=== PATIENT | male | born 1995 | race Caucasian/White ===

== ENCOUNTER 2020-10-09 06:00 | Outpatient (RCR) | payer OTHER ==
[~2020-10-09] VITALS: Ht 175.3 cm; Wt 72.7 kg
[2020-10-11] MEDS ORDERED: ACHD5005 PO (11:18)
== END 2020-10-09 14:09 | disposition home or self-care (01) ==
LOC: PREOP 06:00
PROVIDERS: ATTEND Surgery
DX: Z01.812 Encounter for preprocedural laboratory examination (principal); K42.9 Umbilical hernia without obstruction or gangrene; Z20.822 Contact with and (suspected) exposure to COVID-19
CPT/HCPCS: 87635

== ENCOUNTER 2020-10-11 07:53 | Day surgery (SDC) | payer OTHER ==
[~2020-10-11] VITALS: Ht 175.3 cm; Wt 72.7 kg
[2020-10-11] VITALS (12 sets, daily range): BP systolic 126–150; BP diastolic 55–94
[2020-10-11] MEDS ORDERED: ceFAZolin 2 GM IV Premixed 50 ML IV ONE (08:15)
[2020-10-11] MEDS ORDERED: ONDANSETRON 4 MG/2 ML (SDV) Z0FRAN ONE (08:18)
[2020-10-11] MEDS ORDERED: SEVOFLURANE (ULTANE) 15 ML INHAL SOLN ONE ×2 (08:18→11:15)
[2020-10-11] MEDS ORDERED: proPOfol 200 MG/20 ML (DIPRIVAN) VIAL IV ONE (08:18)
[2020-10-11] MEDS ORDERED: LIDOCAINE PF 2% 5 ML (XYLOCAINE) VIAL ONE (08:18)
[2020-10-11] MEDS ORDERED: ROCURONIUM 10 MG/ML 5 ML SYRINGE IV ONE (08:18)
[2020-10-11] MEDS ORDERED: fentaNYL INJECTION 100 MCG/2 ML AMP ONE (08:19)
[2020-10-11] MEDS ORDERED: MIDAZOLAM 2 MG/2 ML (VERSED) VIAL ONE (08:19)
--- NOTE | 2020-10-11 08:29 | Progress Note-Pre Operative ---
Pre-Operative Progress Note H&P Reviewed The H&P was reviewed, patient examined and no changes noted. Time Seen by Provider: 08:24 Date H&P Reviewed: Oct 11, 2020 Time H&P Reviewed: 08:25 Pre-Operative Diagnosis: Umbilical hernia MIRIAM CACERES DO Oct 11, 2020 08:29
[2020-10-11] MEDS: LACTATED RINGERS 1,000 ML IV PRN ×2 (08:35→10:53)
[2020-10-11] MEDS ORDERED: LIDOCAINE/EPI 1%-1:200,000 (XYLOCAINE) 10 ML VIAL ONE (08:49)
[2020-10-11 09:02] LABS: BASOPHILS % (AUTO) 1 % (0-10); EOSINOPHILS # (AUTO) 0.1 10^3/uL (0.0-0.3); EOSINOPHILS % (AUTO) 2 % (0-10); HEMATOCRIT 43 % (40-54); HEMOGLOBIN 14.4 g/dL (13.3-17.7); LYMPHOCYTES # (AUTO) 1.5 10^3/uL (1.0-4.0); LYMPHOCYTES % (AUTO) 23 % (12-44); MEAN CORPUSCULAR HEMOGLOBIN 32 pg (25-34); MEAN CORPUSCULAR HGB CONC 34 g/dL (32-36); MEAN CORPUSCULAR VOLUME 94 fL (80-99); MEAN PLATELET VOLUME 10.6 fL (9.0-12.2); MONOCYTES # (AUTO) 0.6 10^3/uL (0.0-1.0); MONOCYTES % (AUTO) 9 % (0-12); NEUTROPHILS # (AUTO) 4.3 10^3/uL (1.8-7.8); NEUTROPHILS % (AUTO) 66 % (42-75); PLATELET COUNT 258 10^3/uL (130-400); WHITE BLOOD COUNT 6.5 10^3/uL (4.3-11.0)
[2020-10-11] MEDS ORDERED: NEOSTIGMINE 3 MG/3 ML VIAL ONE (10:53)
[2020-10-11] MEDS ORDERED: GLYCOPYRROLATE 0.2 MG/ML (ROBINUL) 2 ML VIAL ONE (10:53)
[2020-10-11] MEDS ORDERED: ACHD5005 PO (11:18)
--- NOTE | 2020-10-11 11:18 | Progress Note-Post Operative ---
Post-Operative Progess Note Surgeon (s)/Harness Mender (s) Surgeon MIRIAM CACERES DO Harness Mender: Ty Pre-Operative Diagnosis Umbilical hernia Post-Operative Diagnosis Incarcerated Umbilical hernia Procedure & Operative Findings Date of Procedure 10/11/20 Procedure Performed/Findings PROCEDURE: Laparoscopic [umbilical] hernia repair with mesh. COMPLICATIONS: None. INDICATIONS: The patient is a 25, male with an [incarcerated umbilical] hernia, which has continued to increase in size and cause discomfort. The patient was explained the risk and benefits of the procedure and wished to proceed with the procedure. Consent was signed on the chart. DESCRIPTION OF PROCEDURE: The patient was taken into the operating suite, prepped and draped in sterile fashion. Surgical pause was performed. Local anesthetic was infiltrated in left upper quadrant. A #11 blade scalpel was used to make a small skin incision. Cautery was used to dissect down to the fascia, which was then scored and divided the muscle, went through the posterior sheath and a balloon trocar was inserted into the abdomen. The abdomen was then insufflated. Fat incarcerated in umbilical hernia was seen and removed with L=hook cuatery; removed through the left upper quadrant after placing the other two ports. A 5 mm trocar was placed in the right lower quadrant and a 5 mm trocar was placed in left lower quadrant. The defect was smaller than 2cm and therefore elected not to close. Echo Ventralight 4.5 inch round mesh was then inserted in the abdomen grabbed through the stab incision. The balloon was inflated on the mesh. Circumferential tacks were placed with a SecureStrap Tacker. The balloon was then removed and inner crown was created as well. The mesh was tacked with pressure being decreased. The 12 mm fascial defect was then closed using 0 Vicryl. The abdomen was then desufflated,the trocars were removed. The skin was then closed using 4-0 Monocryl in a running subcuticular fashion. The abdomen was washed and dried and Skin Affix was placed over the incisions. Sponge, instrument and needle count were correct at the end of the case. The patient tolerated procedure well without any complications. She was taken to recovery room in stable condition. Dr. Crawford assisted me helping to make incisions, close incisions, identify anatomy and hold anatomy out of the way. Anesthesia Type GET Estimated Blood Loss Estimated blood loss (mL): scant Specimens/Packing Specimens Removed hernia contents - not sent to pathology MRIIAM CACERES DO Oct 11, 2020 11:17
--- NOTE | 2020-10-11 11:19 | Discharge Inst-Surgical ---
Discharge Inst-Surgical Depart Medication/Instructions New, Converted or Re-Newed RX: RX Given to Pt/Family Patient Instructions Follow up Appt: Make appointment for 1 week. [phone] Instructions: No lifting greater than 20 pounds. No strenuous activity. May shower in 24 hours, no tub bath or soaking. Use incentive spirometer at home as directed. No Smoking Skin/Wound Care: May remove bandages in am. You need to leave the Dermabond on incision it will fall off on it's own. Symptoms to Report: Appetite Changes, Extremity Discoloration, Numbness/Tingling, Swelling Increased, Bleeding Excessive, Eyesight Changes, Pain Increased, Urine Color Change, Constipation(Persistent), Fever over 101 degree F, Pain/Pressure in chest, Urinating Difficulty, Cough Up/Vomit Blood, Heart Beat Irreg/Pounding, Pain/Pressure in jaw, Cramps in feet or legs, Lightheadedness, Pain/Pressure in shoulder, Diarrhea(Persistent), Memory Changes Suddenly, Questions/Concerns, Weight gain consecutive days, Dizziness/Fainting, Nausea/Vomiting, Shortness of Breath, Weight gain over 2 pounds If questions or concerns contact your physician Or seek help at emergency department. Activity Activity as Tolerated: Yes Activity Instructions: Avoid Stress to Incision Driving Instructions: No Driving/Refer to Dr. Burgess Discharge Diet: No Restrictions Diet After 24 Hours: Clear Liquid if Nauseous If Any Problems/Questions/Issu: Contact Your Physician, Go to Emergency Room Skin/Wound Care Infection Signs and Symptoms: Increased Redness, Foul Odor of Wound, Increased Drainage, Skin Itchy or Has a Rash, Increased Swelling, Temperature Above 101 F Wound Care Comment: heating pad to shoulder or neck tonight for pain Bathing Instructions: Shower Stitches/Darrick/Dermabond Dis: Dermabond Ice Pack: Ice On and Off Site (as needed for pain at incision site) MIRIAM CACERES DO Oct 11, 2020 11:19
[2020-10-11] MEDS ORDERED: MEPERIDINE (DEMEROL) INJ 50 MG/ML ONE (11:29)
[2020-10-11] MEDS ORDERED: ONDANSETRON 4 MG/2 ML (SDV) Z0FRAN IVP PRN (11:30)
[2020-10-11] MEDS ORDERED: MEPERIDINE (DEMEROL) INJ 50 MG/ML IVP ONE (11:30)
[2020-10-11] MEDS ORDERED: morphine INJ 10 MG/ML 1ML (SYR OR VIAL) IVP ONE (11:30)
[2020-10-11] MEDS ORDERED: HYDROmorphone 2 MG/ML VIAL (DILAUDID) IV ONE (11:30)
--- NOTE | 2020-10-11 12:10 | Anesthesia-General Post-Op ---
General Patient Condition Mental Status/LOC: Same as Preop Cardiovascular: Satisfactory Nausea/Vomiting: Absent Respiratory: Satisfactory Pain: Controlled Complications: Absent Post Op Complications Complications None Follow Up Care/Instructions Patient Instructions None needed. Anesthesia/Patient Condition Patient Condition Patient is doing well, no complaints, stable vital signs, no apparent adverse anesthesia problems. No complications reported per nursing. RAJINDER CUADRA CRNA Oct 11, 2020 12:10
[2020-10-11] MEDS ORDERED: HYDROcodone/APAP 5 MG/325 MG (LORTAB) TAB PO ONE (13:00)
== END 2020-10-11 13:50 | disposition home or self-care (01) ==
LOC: SDC 07:53
PROVIDERS: ATTEND Surgery
DX: K42.0 Umbilical hernia with obstruction, without gangrene (principal); F17.210 Nicotine dependence, cigarettes, uncomplicated
CPT/HCPCS: 49653; 85025; 87081; C1781; 36415